=== PATIENT | female | born 1985 | race American Indian/Alaskan Native ===

== ENCOUNTER 2020-05-09 10:35 | Emergency (ER) | payer SELFPAY ==
[2020-05-09 11:11] LABS: Bilirubin,Urine NEG (Negative); Blood,Urine NEG (Negative); Color,Urine Yellow (Yellow); Hyaline Casts,Urine 1 /LPF; Mucus,Urine FEW /HPF; Protein,Urine <15 mg/dL mg/dL (Negative); RBC,Urine < 1.0 /HPF (0.0-6.0); Urobilinogen,Urine < 2.0 mg/dL (<2.0); WBC,Urine < 1.0 /HPF (0.0-6.0)
--- NOTE | 2020-05-09 11:15 | Event Note ---
ED Screening Note Date of service: 05/09/20 Time: 11:10 ED Screening Note: C/o lower abd pain and vag discharge. times over a month. This initial assessment/diagnostic orders/clinical plan/treatment(s) is/are subject to change based on patients health status, clinical progression and re-assessment by fellow clinical providers in the ED. Further treatment and workup at subsequent clinical providers discretion. Patient/guardian urged not to elope from the ED as their condition may be serious if not clinically assessed and managed. Initial orders include:
--- NOTE | 2020-05-09 12:02 | Emergency Department Report ---
ED Female HPI - General Chief complaint: Abdominal Pain Stated complaint: ABD PAIN Time Seen by Provider: 05/09/20 11:33 Source: patient Mode of arrival: Ambulatory Limitations: No Limitations - History of Present Illness Initial comments: This pleasant 35-year-old female presents the emergency department chief complaint of suprapubic abdominal cramping over the past month. She reports she has been having some vaginal discharge and is concerned she may have an STD. She denies any known past medical history, current medication use or known aller gies to medications. She reports a in 2014 but denies any since. She denies any associated fevers, chills, night sweats, headache, dizziness, blurry vision, nausea, vomiting, diarrhea, chest pain, shortness of breath, weakness or any other associated symptoms. - Related Data Previous Rx's Medication Instructions Recorded Last Taken Type Naproxen 500 mg PO BID #14 tablet 05/09/20 Unknown Rx metroNIDAZOLE [Flagyl TAB] 500 mg PO Q12HR #20 tab 05/09/20 Unknown Rx Allergies Allergy/AdvReac Type Severity Reaction Status Date / Time No Known Allergies Allergy Verified 05/09/20 10:43 ED Review of Systems ROS: Stated complaint: ABD PAIN Other details as noted in HPI Comment: All other systems reviewed and negative Constitutional: denies: chills, fever Eyes: denies: eye pain, eye discharge, vision change ENT: denies: ear pain, throat pain Respiratory: denies: cough, shortness of breath, wheezing Cardiovascular: denies: chest pain, palpitations Endocrine: no symptoms reported Gastrointestinal: abdominal pain. denies: nausea, diarrhea Genitourinary: as per HPI, discharge. denies: urgency, dysuria Musculoskeletal: denies: back pain, joint swelling, arthralgia Skin: denies: rash, lesions Neurological: denies: headache, weakness, paresthesias Psychiatric: denies: anxiety, depression Hematological/Lymphatic: denies: easy bleeding, easy bruising ED Past Medical Hx - Past Medical History Previous Medical History?: No - Surgical History Past Surgical History?: No - Social History Smoking Status: Never Smoker Substance Use Type: None - Medications Home Medications: Home Medications Medication Instructions Recorded Confirmed Last Taken Type Naproxen 500 mg PO BID #14 tablet 05/09/20 Unknown Rx metroNIDAZOLE [Flagyl TAB] 500 mg PO Q12HR #20 tab 05/09/20 Unknown Rx ED Physical Exam - General Limitations: No Limitations General appearance: alert, in no apparent distress - Head Head exam: Present: atraumatic, normocephalic - Eye Eye exam: Present: normal appearance, PERRL, EOMI Pupils: Present: normal accommodation - ENT ENT exam: Present: normal exam, normal orophraynx, mucous membranes moist - Neck Neck exam: Present: normal inspection, full ROM. Absent: tenderness, meningismus - Respiratory Respiratory exam: Present: normal lung sounds bilaterally. Absent: respiratory distress, wheezes, rales, rhonchi, stridor, chest wall tenderness - Cardiovascular Cardiovascular Exam: Present: regular rate, normal rhythm, normal heart sounds. Absent: systolic murmur, diastolic murmur, rubs, gallop - GI/Abdominal GI/Abdominal exam: Present: soft, tenderness (Mild suprapubic tenderness, no rebound or guarding, negative McBurney's point tenderness, negative Nick si gn), normal bowel sounds. Absent: distended, guarding, rebound, rigid - Rectal Rectal exam: Present: deferred - External exam: Present: normal external exam Speculum exam: Present: normal speculum exam, other (No cervical motion tenderness, normal bimanual exam with no adnexal masses or adnexal tenderness, scant white vaginal discharge, no lesions chaperoned by MELINDA Rothman) - Extremities Exam Extremities exam: Present: normal inspection, full ROM, normal capillary refill. Absent: tenderness - Back Exam Back exam: Present: normal inspection, full ROM. Absent: tenderness, CVA tenderness (R), CVA tenderness (L) - Neurological Exam Neurological exam: Present: alert, oriented X3 - Psychiatric Psychiatric exam: Present: normal affect, normal mood - Skin Skin exam: Present: warm, dry, intact, normal color. Absent: rash ED Course Vital Signs 05/09/20 10:44 Temperature 98.5 F Pulse Rate 104 H Respiratory 16 Rate Blood Pressure 122/84 O2 Sat by Pulse 100 Oximetry ED Medical Decision Making - Medical Decision Making Pelvic exam is relatively benign, wet prep returned unremarkable other than clue cells which is likely secondary to bacterial vaginosis which I will treat with metronidazole. Trichomonas was negative. Gonorrhea chlamydia is pending but patient will be treated empirically with Rocephin and azithromycin. Patient will be given outpatient [facility] and health department follow-up and recommend she follow-up for STD check on all other STDs. No cervical motion tenderness or adnexal tenderness making PID or TOA unlikely. - Differential Diagnosis PID, UTI, ovarian cyst Critical care attestation.: If time is entered above; I have spent that time in minutes in the direct care of this critically ill patient, excluding procedure time. ED Disposition Clinical Impression: Pelvic pain Disposition: TO HOME OR SELFCARE Is pt being admited?: No Condition: Stable Instructions: Pelvic Pain, Female, [id number], Abdominal Pain (ED) Prescriptions: metroNIDAZOLE [Flagyl TAB] 500 mg PO Q12HR #20 tab Naproxen 500 mg PO BID #14 tablet Referrals: [facility] [Primary Care Provider] - 3-5 Days [facility] [Provider Group] - 3-5 Days [facility] [Outside] - 3-5 Days Time of Disposition: 13:34
[2020-05-09] MEDS ORDERED: LIDOCAINE-MPF (1%) 10 MG/1 ML VIAL 5 ML INFILTRATI ONE (13:23)
[2020-05-09] MEDS ORDERED: AZITHROMYCIN 1 GM ORAL PWDR PACKET PO ONE (13:23)
[2020-05-09 13:48] LABS: HCG Qualitative,Urine Negative (Negative)
[2020-05-09 15:16] VITALS: BP 116/74
== END 2020-05-09 14:30 | disposition home or self-care (01) ==
LOC: ED 10:35
DX: R10.2 Pelvic and perineal pain (principal); Z79.899 Other long term (current) drug therapy
CPT/HCPCS: 81001; 81025; 87210; 87591; 96372; 99284; J0696